=== PATIENT | male | born 1960 | race Caucasian/White ===

== ENCOUNTER 2022-01-17 11:39 | Emergency (ER) | payer OTHER ==
--- NOTE | 2022-01-17 11:43 | ERPHSYRPT ---
- History of Present Illness Time Seen by Provider: 01/17/22 11:43 Source: patient Exam Limitations: no limitations Physician History: This is a 61-year-old white male patient who is diabetic and was brought in by the police department because of concerns of friends and family regarding suicidal comments. 1 of patient's long standing friends by the name of Lio contacted the police department because his friend was making comments that he did not want to live in this world any longer and that he was not going to be here tomorrow because of worsening condition of the countries that the "liberals" were causing. His friend Lio did not know exactly what to do but there were other friends that no this patient as well and they noticed the same worsening conditions and comments that this patient was making. At some point, Lio contacted the patient's daughter Fiona who also made some comments that she noticed a change in this patient's behavior and outlook. The Police Department went to do a welfare check on the patient and became combative not understanding initially why they were there. There was an altercation. Patient was brought into the emergency department for psychiatric evaluation. Upon entrance into the emergency department, the patient stated that he did not need to be here and he was not going to allow us to evaluate his blood, urine or obtain any type of psychiatric evaluation. Patient explicitly denies suicidal ideation or thoughts. He also denies any homicidal thoughts or ideation. He is not allowing us to even check his blood sugar level. Patient is not suicidal. Timing/Duration: today Severity of Symptoms-Max: mild Severity of Symptoms-Current: mild Context related to: work, lost job Suicidal thoughts: other (Patient has no specific plan. There have been comments made and heard by his friends and family and on Facebook that make them concerned about the possibility of suicide.) Associated Symptoms: depressed, frustrated Previous symptoms: no prior history Allergies/Adverse Reactions: Penicillins Allergy (Severe, Verified 01/17/22 11:57) Swelling Home Medications: glyBURIDE [Glyburide] 5 mg PO DAILY 01/17/22 [History] Travel Risk - International Travel Have you traveled outside of the country in past 3 weeks: No - Coronavirus Screening Are you exhibiting any of the following symptoms?: No Close contact with a COVID-19 positive Pt in past 14-21 Days: No - Past Medical History Pertinent Past Medical History: Yes - Past Surgical History Past Surgical History: Yes - Review of Systems Constitutional: No Symptoms Eyes: No Symptoms Ears, Nose, & Throat: No Symptoms Respiratory: No Symptoms Cardiac: No Symptoms Abdominal/Gastrointestinal: No Symptoms Genitourinary Symptoms: No Symptoms Musculoskeletal: No Symptoms Skin: No Symptoms Neurological: No Symptoms Psychological: Depression, Mood Changes, Other (Frustrated) Endocrine: No Symptoms Hematologic/Lymphatic: No Symptoms Immunological/Allergic: No Symptoms All Other Systems: Reviewed and Negative - Nursing Vital Signs Nursing Vital Signs: Initial Vital Signs Temperature 99.5 F 01/17/22 11:47 Pulse Rate 84 01/17/22 11:47 Respiratory Rate 20 01/17/22 11:47 Blood Pressure 165/98 01/17/22 11:47 O2 Sat by Pulse Oximetry 97 01/17/22 11:47 Pain Scale Pain Intensity 0 - Physical Exam General Appearance: no apparent distress, alert, anxiety Eyes, Ears, Nose, Throat Exam: normal ENT inspection, moist mucous membranes Neck Exam: normal inspection, non-tender, supple, full range of motion Respiratory Exam: normal breath sounds, lungs clear, airway intact, No chest ten derness, No respiratory distress Cardiovascular Exam: regular rate/rhythm, normal heart sounds, normal peripheral pulses Gastrointestinal/Abdominal Exam: soft, normal bowel sounds, No tenderness Extremities Exam: normal inspection, normal range of motion, No evidence of injury Current Suicidality: denies suicide plan Neurological Exam: alert, normal mood/affect, 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, agitated, anxious, depressed affect Appearance: appropriate appearance, appropriate insight, no memory impairment Behavior/Eye Contact/Speech: avoids eye contact, increased rate of speech, agitated, alert & uncooperative, No intoxicated appearance Thoughts/Hallucinations: normal thought pattern, no apparent hallucination Skin Exam: normal color, warm, dry SpO2 Interpretation: normal O2 Delivery: Room Air - Course Nursing assessment & vital signs reviewed: Yes Ordered Tests: Active Orders 24 hr Category Date Time Status Clean Catch Urine Specimen STAT Care 01/17/22 12:38 Active EKG-ER Only STAT Care 01/17/22 12:38 Active POCT Glucose Check STAT Care 01/17/22 12:41 Active ACETAMINOPHEN Stat Lab 01/17/22 12:40 Ordered CBC W DIFF Stat Lab 01/17/22 12:38 Ordered CMP Stat Lab 01/17/22 12:38 Ordered ETHYL ALCOHOL Stat Lab 01/17/22 12:38 Ordered SALICYLATE Stat Lab 01/17/22 12:38 Ordered UA W/RFX CULTURE Stat Lab 01/17/22 Ordered Urine Triage Profile Stat Lab 01/17/22 12:39 Ordered - Progress Progress: unchanged Progress Note: 01/17/22 13:13 Medical decision making: This patient was brought into the emergency department by the police department because of concerns of suicidal ideation and comments. Patient adamantly denies he is suicidal. He adamantly denies that he is homicidal. He states that there is nothing that he is going to do to himself or anyone else when he goes home. 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 He has no specific plan or intent of hurting himself or anyone else. However, there have been multiple comments made from friends and family members that suggest that this patient is having significant increase in frustration and agitation depression and anxiety related to what is going around in the world and how it is affecting him and his ability to work. I am trying to keep the patient safe and I told him that if the comments made by his friend Lio were not suggesting any real worsening of condition and frustration and possible suicidal comments then I would allow him to be discharged to home. However Lio stated that he is concerned because his friend is exhibiting worsening frustration agitation depression as is his daughter Fiona and other friends of this patient. I told him that if he could allow us to obtain a urine sample and blood sample to evaluate him from a medical standpoint then have a telemetry mental health evaluation we could possibly discharge him to home and he might be able to be treated as an outpatient. However, the patient is refusing blood draw and obtaining urine. He stated that he has more rights than what I am telling him. Patient then left the emergency department AMA/elopement. We will contact law enforcement to bring him back to complete a full work-up. 01/17/22 13:27 Medical decision making: Law enforcement has arrived. From their standpoint they do not have enough information or cause to perform an immediate/emergency halfway on him in the emergency department. Therefore, they are not going to pick him up and return him to the emergency department for further psychiatric evaluation. I will have the nurses inform the patient's family and friend who contacted law enforcement. 01/17/22 13:29 Counseled pt/family regarding: diagnosis - Departure Departure Disposition: AMA Clinical Impression: Agitation, Suicidal risk Condition: Stable Critical Care Time: No
[2022-01-17 11:57] VITALS: BP 165/98
[2022-01-17 13:02] VITALS: PULSE 110; O2SAT 98
== END 2022-01-17 13:05 | disposition left against medical advice (07) ==
LOC: ED 11:39
DX: R45.1 Restlessness and agitation (principal); R45.851 Suicidal ideations; Z56.0 Unemployment, unspecified; Z79.84 Long term (current) use of oral hypoglycemic drugs
CPT/HCPCS: 99284